=== PATIENT | female | born 1995 | race Two or more races ===

== ENCOUNTER 2016-11-30 20:33 | Emergency (ER) | payer OTHER ==
[~2016-11-30] VITALS: Ht 149.9 cm; Wt 44.5 kg
[2016-11-30 20:45] VITALS: BP 108/66
[2016-11-30] MEDS ORDERED: DIPHENHYDRAMINE25 M1 ORAL (20:59)
[2016-11-30] MEDS ORDERED: PREDNISONE20 MG ORAL (20:59)
[2016-11-30 21:12] VITALS: BP 108/66
--- NOTE | 2016-12-02 09:48 | Emergency Room Report ---
History of Present Illness General Chief Complaint: Skin Rash/Abscess Source: Patient Present Illness HPI 21-year-old female presents ED complaining of rash to body x3 days. States rash started after she went to her friend's house, her friend has a lot of cats and the rash started immediately. Patient states it is very itchy. Subsided initially because she took one dose of Benadryl but has since resumed. Denies any known food or drug allergies. Denies any throat swelling or tongue swelling. Denies any shortness of breath. No other aggravating relieving factors. Denies any other associated symptoms Allergies: Coded Allergies: No Known Allergies (Unverified , 11/30/16) Patient History Past Medical History: none Past Surgical History: none Pertinent Family History: none Social History: Denies: smoking, alcohol use, drug use Last Menstrual Period: 11/23/16 Now: No Immunizations: UTD Reviewed Nursing Documentation: PMH: Agreed, PSxH: Agreed Nursing Documentation-PMH Past Medical History: No Stated History Review of Systems All Other Systems: negative except mentioned in HPI Physical Exam Vital Signs Date Time Temp Pulse Resp B/P (MAP) Pulse Ox O2 Delivery O2 Flow Rate FiO2 11/30/16 20:39 98.1 89 17 108/66 98 Room Air Sp02 EP Interpretation: reviewed, normal General Appearance: no apparent distress, alert, GCS 15, non-toxic Head: normocephalic, atraumatic Eyes: bilateral eye normal inspection, bilateral eye PERRL ENT: hearing grossly normal, normal pharynx, no angioedema, normal voice Neck: full range of motion, supple/symm/no masses Respiratory: chest non-tender, lungs clear, normal breath sounds, speaking full sentences Cardiovascular #1: regular rate, rhythm, no edema Cardiovascular #2: 2+ carotid (R), 2+ carotid (L), 2+ radial (R), 2+ radial (L) , 2+ dorsalis pedis (R), 2+ dorsalis pedis (L) Gastrointestinal: normal bowel sounds, non tender, soft, non-distended, no guarding, no rebound Rectal: deferred Genitourinary: normal inspection, no CVA tenderness Musculoskeletal: back normal, gait/station normal, normal range of motion, non- tender Neurologic: alert, oriented x3, responsive, motor strength/tone normal, sensory intact, speech normal Psychiatric: judgement/insight normal, memory normal, mood/affect normal, no suicidal/homicidal ideation Reflexes: 3+ bicep (R), 3+ bicep (L), 3+ tricep (R), 3+ tricep (L), 3+ knee (R) , 3+ knee (L) Skin: normal color, warm/dry, well hydrated, rash - diffuse urticaria Lymphatic: no adenopathy Medical Decision Making Diagnostic Impression: Primary Impression: Allergic reaction Qualified Codes: T78.40XA - Allergy, unspecified, initial encounter ER Course Hospital Course 21-year-old female presents ED with diffuse rash x3 days Differential diagnoses include: allergic reaction, cellulitis, bug bites Clinical course Patient placed on stretcher. classroom monitor. After initial history, physical exam reveals a young female in no acute distress. On exam there is a diffuse urticarial rash to the arms legs chest and abdomen. No tongue swelling or throat swelling. No stridor. Consistent with allergic reaction I ordered Benadryl, prednisone i. I feel this is a highly complex case requiring extensive working including EKG/Rhythm strip, Xray/CT/US, Blood/urine lab work, repeat exams while in ED, and administration of strong opiates/narcotics for pain control, admission to hospital or close patient follow up. Diagnosis - allergic reaction Stable and discharged to home with prescriptions for prednisone, Benadryl. Followup with PMD. Return to ED if symptoms recur or worsen Last Vital Signs Date Time Temp Pulse Resp B/P (MAP) Pulse Ox O2 Delivery O2 Flow Rate FiO2 11/30/16 21:12 98.1 17 108/66 98 Room Air 11/30/16 20:39 89 Status: improved Disposition: HOME, SELF-CARE Condition: Stable Scripts Prednisone* (PREDNISONE*) 20 Mg Tablet 40 MG ORAL DAILY for 5 Days, #10 TAB Prov: EMANUEL FLORES M.D. 11/30/16 Diphenhydramine Hcl* (DIPHENHYDRAMINE HCL*) 25 Mg Capsule 25 MG ORAL Q6H Y for Itching for 5 Days, #30 CAP 0 Refills Prov: EMANUEL FLORES M.D. 11/30/16 Referrals: [facility]ERR[facility] (PCP) Patient Instructions: Pruritus EMANUEL FLORES M.D. Dec 02, 2016 09:48
== END 2016-11-30 21:12 | disposition home or self-care (01) ==
LOC: EMR 21:00
DX: T78.40XA Allergy, unspecified, initial encounter (principal); X58.XXXA Exposure to other specified factors, initial encounter; R21 Rash and other nonspecific skin eruption
CPT/HCPCS: 99284

== ENCOUNTER 2020-02-23 18:16 | Emergency (ER) | payer OTHER ==
[~2020-02-23] VITALS: Ht 149.9 cm; Wt 45.4 kg
[~2020-02-23 18:16] MED LIST: DIPHENHYDRAMINE25 M1 ORAL; PREDNISONE20 MG ORAL
[2020-02-23 18:30] VITALS: BP 97/63
--- NOTE | 2020-02-23 18:34 | Emergency Room Report ---
History of Present Illness General Chief Complaint: Female Urogenital Problems Source: Patient Present Illness HPI 24 YO female presents to the ED c/o 12/23 in severity dysuria and some hematuria x 2 days. Pt. reports onset after having intercourse the day prior. Pt. denies abdominal pain or tenderness. She denies back pain, fevers, or chills. Pt. denies vaginal dc. She reports she had her cycle last week. Pt. reports urinary urgency as well. Pt. states she frequently holds her urine through out the day. Pt. denies nausea or vomiting. She denies rashes or sores. She denies itchiness or recent abx use. Allergies: Coded Allergies: No Known Allergies (Unverified , 11/30/16) COVID-19 Screening Contact w/high risk pt: No Experienced COVID-19 symptoms?: No COVID-19 Testing performed MARKETING DIRECTOR: No Patient History Past Medical History: see triage record Past Surgical History: none Pertinent Family History: none Last Menstrual Period: 02/03/20 Now: No Reviewed Nursing Documentation: PMH: Agreed; PSxH: Agreed Nursing Documentation-PMH Past Medical History: No Stated History Review of Systems All Other Systems: negative except mentioned in HPI Physical Exam Vital Signs Date Time Temp Pulse Resp B/P (MAP) Pulse Ox O2 Delivery O2 Flow Rate FiO2 02/23/20 18:20 98.4 77 16 97/63 (74) 97 Room Air Sp02 EP Interpretation: reviewed, normal General Appearance: no apparent distress, alert, GCS 15, non-toxic Head: normocephalic, atraumatic Eyes: bilateral eye normal inspection, bilateral eye PERRL ENT: hearing grossly normal, normal voice Neck: full range of motion Respiratory: lungs clear, normal breath sounds, speaking full sentences Cardiovascular #1: regular rate, rhythm Gastrointestinal: normal bowel sounds, non tender, soft, non-distended, no guarding Genitourinary: normal inspection, no CVA tenderness Musculoskeletal: back normal, normal range of motion, gait/station normal, non- tender Neurologic: alert, motor strength/tone normal, oriented x3, sensory intact, responsive, speech normal Psychiatric: judgement/insight normal Medical Decision Making PA Attestation Dr. Nagel Is my supervising Physician whom patient management has been discussed with. Diagnostic Impression: Primary Impression: UTI (urinary tract infection) Qualified Codes: N30.01 - Acute cystitis with hematuria ER Course 24 YO female presents to the ED c/o 12/23 in severity dysuria and some hematuria x 2 days. Pt. reports onset after having intercourse the day prior. Pt. denies abdominal pain or tenderness. She denies back pain, fevers, or chills. Pt. denies vaginal dc. She reports she had her cycle last week. Pt. reports urinary urgency as well. Pt. states she frequently holds her urine through out the day. Pt. denies nausea or vomiting. She denies rashes or sores. She denies itchiness or recent abx use. Ddx considered but are not limited to UTi , Pyelo, STI, Stone, Cystitis Vital signs: are WNL, pt. is afebrile H&PE are most consistent with UTI ORDERS: - UA labs are attached ED INTERVENTIONS: - PYridium PO DISCHARGE: At this time pt. is stable for d/c to home. Will provide printed patient care instructions, and any necessary prescriptions. Care plan and follow up instructions have been discussed with the patient prior to discharge. Labs Test 02/23/20 18:36 Urine Color Pale yellow Urine Appearance Cloudy Urine pH 6 (4.5-8.0) Urine Specific [place] 1.015 (1.005-1.035) Urine Protein 3+ (NEGATIVE) Urine Glucose (UA) Negative (NEGATIVE) Urine Ketones 3+ (NEGATIVE) Urine Blood 5+ (NEGATIVE) Urine Nitrite Negative (NEGATIVE) Urine Bilirubin Negative (NEGATIVE) Urine Urobilinogen 1 MG/DL (0.0-1.0) Urine Leukocyte Esterase 3+ (NEGATIVE) Urine RBC Tntc /HPF (0 - 2) Urine WBC Tntc /HPF (0 - 2) Urine Squamous Epithelial Cells Few /LPF (NONE/OCC) Urine Bacteria Many /HPF (NONE) Urine HCG, Qualitative Negative (NEGATIVE) Last Vital Signs Date Time Temp Pulse Resp B/P (MAP) Pulse Ox O2 Delivery O2 Flow Rate FiO2 02/23/20 18:20 98.4 77 16 97/63 (74) 97 Room Air Disposition: HOME, SELF-CARE Condition: Stable Scripts Phenazopyridine Hcl* (PYRIDIUM*) 200 Mg Tablet 200 MG ORAL THREE TIMES A DAY for 7 Days, #14 TAB 0 Refills Prov: Gaby Burnett 02/23/20 Cephalexin* (KEFLEX*) 500 Mg Capsule 500 MG ORAL EVERY 12 HOURS for 7 Days, #14 CAP 0 Refills Prov: Gaby Burnett 02/23/20 Patient Instructions: Urinary Tract Infection Additional Instructions: Take medications as directed. Follow up with a Primary Care Provider in 3-5 days, even if your symptoms have resolved. --Please review list of primary care clinics, if you do not already have a primary care provider Return sooner to ED if new symptoms occur, or current symptoms become worse. - Please note that this Emergency Department Report was dictated using [employer] teacher technology software, occasionally this can lead to erroneous entry secondary to interpretation by the dictation equipment. Gaby Burnett Feb 23, 2020 18:34
--- NOTE | 2020-02-23 18:38 | NUR ---
ED Nurse Note: urine collected, sent to lab.
[2020-02-23] MEDS ORDERED: Phenazopyridine 200mg tab ORAL ONE (18:45)
[2020-02-23 19:13] LABS: APPEARANCE,URINE CLOUDY; BILIRUBIN, URINE NEGATIVE (NEGATIVE); COLOR,URINE PALE YELLOW; GLUCOSE, URINE (UA) NEGATIVE (NEGATIVE); KETONES,URINE 3+ (NEGATIVE); LEUKOCYTE ESTERASE ,URINE 3+ (NEGATIVE); NITRITE,URINE NEGATIVE (NEGATIVE); PH,URINE 6 (4.5-8.0); PROTEIN,URINE 3+ (NEGATIVE); UROBILINOGEN,URINE 1 MG/DL (0.0-1.0)
[2020-02-23] MEDS ORDERED: PHENAZOPYRIDIN200 MG ORAL (19:45)
[2020-02-23] MEDS ORDERED: CEPHALEXIN500 MG ORAL (19:45)
[2020-02-23 19:50] VITALS: BP 102/70
--- NOTE | 2020-02-23 19:50 | NUR ---
ER DISCHARGE NOTE: Patient is cleared to be discharged per PA, pt is aox4, on room air, with stable vital signs. pt was given dc and prescription instructions, pt was able to verbalize understanding, pt id band removed. pt is able to ambulate with steady gait. pt took all belongings.
== END 2020-02-23 19:50 | disposition home or self-care (01) ==
LOC: EMR 18:30
DX: N30.01 Acute cystitis with hematuria (principal)
CPT/HCPCS: 81003; 81025; 87086; 87181; Z7502; 99283